=== PATIENT | male | born 1985 | race Caucasian/White ===

== ENCOUNTER 2016-11-23 14:01 | Observation (INO) ==
[2016-11-23] MEDS ORDERED: Famotidine 20 MG/2 ML VIAL IVP ONE (14:24)
[2016-11-23] MEDS ORDERED: *HR* Promethazine 25 MG/ML VIAL IVP ONE ×2 (14:24→18:09)
--- NOTE | 2016-11-23 14:27 | Emergency Department Note ---
Disposition Clinical Impression: Acute gastroenteritis Intractable vomiting Qualifiers: Vomiting type: unspecified Nausea presence: with nausea Qualified Code(s): R11.2 - Nausea with vomiting, unspecified Type 1 diabetes mellitus Qualifiers: Diabetes mellitus complication status: with hyperglycemia Qualified Code(s): E10.65 - Type 1 diabetes mellitus with hyperglycemia Disposition: Admitted As Inpatient Condition: Good Referrals: Jaime Mosqueda MD [Primary Care Provider] - Forms: ED Satisfaction Letter Time of Disposition: 17:57 Nausea/Vomiting/Diarrhea HPI - General Chief complaint: ED Nausea/Vomiting/Diarrhea Stated complaint: vomiting Time Seen by Provider: 11/23/16 14:25 Source: patient Mode of arrival: ambulatory Limitations: no limitations Nursing Notes Reviewed: Yes Vital Signs Reviewed: Yes - History of Present Illness HPI Narrative: 31-year-old white male who was just discharged after being seen for vomiting that started last night. He had had multiple episodes of vomiting. He had aching all over. He is an insulin-dependent diabetic. His blood sugars have not been running high. He was worked up. He had ketones in his urine and blood. His pH was normal after being adjusted for his PCO2. His bicarbonate was normal. He was feeling good and was eating and drinking and wanted to go home. After he got home he got nauseated. He took a Zofran. He vomited. He came back. Pt Subjective Complaint: nausea, vomiting Onset (ago): day(s) Description of emesis: food contents (1) Number of episodes of emesis: 1 If pain, Location of pain: diffuse Severity: moderate Quality: cramping Consistency: intermittent Worsens with: nonthing Context: other (Insulin-dependent diabetic) Associated symptoms: Reports: other (Myalgias) - Related Data Home Medications Medication Instructions Recorded Confirmed Insulin Human Regular [HumuLIN R] 60 units SQ DAILY 11/23/16 11/23/16 Previous Rx's Medication Instructions Recorded Ondansetron ODT [Zofran ODT] 4 mg SL Q4HR PRN #8 tab.rapdis 11/23/16 Allergies Allergy/AdvReac Type Severity Reaction Status Date / Time No Known Allergies Allergy Verified 11/23/16 14:02 All systems ED: reviewed and negative except as stated. Constitutional: Denies: fever, chills ENT ED: Denies: ear pain, throat pain Cardiovascular: Denies: chest pain Respiratory: Denies: cough, dyspnea Gastrointestinal: Reports: abdominal pain, nausea, vomiting. Denies: diarrhea Musculoskeletal: Reports: myalgia. Denies: back pain Integumentary: Denies: rash Past Medical History - Past Medical History Medical history: Reports: diabetes Surgical history: Reports: no surgical history Psychiatric history: Reports: no psych history - Social History Smoking Status: Current every day smoker Smokeless Tobacco Status: No Alcohol use: Reports: none Drug use: Reports: none Physical Exam - General Limitations: no limitations General appearance: alert, in no apparent distress - Head Head exam: atraumatic, normocephalic - Eye Eye exam: Present: PERRL, EOMI. Absent: scleral icterus, conjunctival injection - ENT ENT exam: normal oropharynx, mucous membranes moist - Neck Neck exam: Present: normal inspection, full ROM, trachea midline. Absent: lymphadenopathy - Chest Chest inspection: Present: normal inspection, symmetric chest wall rise - Respiratory Respiratory exam: Present: normal lung sounds bilaterally. Absent: respiratory distress, wheezes - Cardiovascular Cardiovascular exam: Present: regular rate, normal rhythm, normal heart sounds - Abdominal Exam Abdominal exam: Present: soft, tenderness, normal bowel sounds. Absent: distention, guarding, rebound, organomegaly, mass Abdominal tenderness: Present: diffuse, mild - Extremities Exam Extremities exam: Present: normal inspection, full ROM - Back Exam Back exam: Absent: CVA tenderness (R), CVA tenderness (L) - Neurological Exam Neurological exam: Present: alert, oriented X3, normal gait - Psychiatric Psychiatric exam: Present: normal affect, normal mood - Skin Skin exam: Present: warm, dry, intact. Absent: cyanosis, diaphoresis Course - Reevaluation(s) Reevaluation #1: He is improved, but he continues to dry heave when he wakes up. Time: 17:55 Vital Signs Temperature 96.1 F L 11/23/16 14:05 Pulse Rate 94 11/23/16 14:05 Respiratory Rate 16 11/23/16 14:05 Blood Pressure 153/84 11/23/16 14:05 O2 Sat by Pulse Oximetry 99 11/23/16 14:05 Temperature 96.1 F L 11/23/16 14:06 Pulse Rate 110 11/23/16 16:42 Respiratory Rate 15 11/23/16 17:16 Blood Pressure 110/59 11/23/16 17:16 O2 Sat by Pulse Oximetry 100 11/23/16 17:16 Oxygen Delivery Oxygen Delivery Room Air Nausea/Vomiting/Diarrhea - MDM Narrative Medical decision making narrative: Differential includes but is not limited to gastroenteritis, DKA, small bowel obstruction, gastritis, pancreatitis, peptic ulcer disease, hepatitis, biliary tract disease. Clinically I still believe this is a viral gastroenteritis with intractable vomiting. His bicarbonate is normal. His pH is normal. I cannot rule out the possibility of early DKA. He certainly does not need to be on an insulin drip. Sliding scale insulin is fine. IV hydration and nausea control. I spoke with Dr. Lassiter. He is agreeable with our treatment plan. He is accepted the patient for admission. - Medical Records Medical records reviewed: Yes I reviewed the patient's medical records. - Lab Data Lab results reviewed: Yes I reviewed the patient's lab results.
[2016-11-23] MEDS ORDERED: 0.9 % Sodium Chloride 1,000 ML IVC SCH ×2 (14:30→20:16)
[2016-11-23] MEDS ORDERED: *HR* Morphine 2 MG/ML SYRINGE IVP ONE (14:48)
[2016-11-23] MEDS ORDERED: Naloxone 0.4 MG/ML INJ IVP PRN (20:16)
[2016-11-23] MEDS ORDERED: *HR* Dextrose 50 % in Water (Syg) 50 ML SYRINGE IVP PRN ×2 (20:16→21:22)
[2016-11-23] MEDS ORDERED: D5% in Water 1,000 ML IV PRN ×2 (20:16→21:22)
[2016-11-23] MEDS ORDERED: *HR* Morphine 2 MG/ML SYRINGE IVP PRN (20:16)
[2016-11-23] MEDS ORDERED: Dextrose Gel 15 GM PO PRN ×4 (20:16→21:22)
[2016-11-23] MEDS: Ondansetron 4 MG/2 ML VIAL IVP PRN (21:56)
[2016-11-23] MEDS: Insulin LISPRO 300 UNITS/3 ML VIAL SQ SCH (21:56)
[2016-11-24] MEDS ORDERED: Insulin LISPRO 300 UNITS/3 ML VIAL SQ SCH
[2016-11-24] MEDS: Insulin LISPRO 300 UNITS/3 ML VIAL SQ SCH ×4 (02:06→13:45)
[2016-11-24] MEDS: 0.9 % Sodium Chloride 1,000 ML IVC SCH ×2 (02:09→09:54)
[2016-11-24 06:50] LABS: Basophils % 0.1 %; Hematocrit 37.2 % (37.5-50.1); Hemoglobin 12.8 g/dL (12.9-16.9); Immature Granulocytes % 0.7 % (0-4); Lymphocytes % 5.3 %; Mean Corpuscular HGB Conc 34.4 g/dL (31.6-35.5); Mean Corpuscular Hemoglobin 30.1 pg (28.0-33.3); Mean Corpuscular Volume 87.5 fL (83.0-100.0); Mean Platelet Volume 12.1 fL (9.4-12.4); Monocytes # 1.7 K/mcL (0.0-1.3); Monocytes % 9.3 %; Neutrophils # 15.4 K/mcL (1.6-8.9); Platelet Count 234 K/mcL (140-400); Red Blood Count 4.25 M/mcL (4.19-5.50); Red Cell Distribution Width 12.9 % (11.5-14.5); Segmented Neutrophils % 84.6 %
[2016-11-24 07:02] LABS: Alanine Aminotransferase 16 Units/L (0-55); Albumin 3.5 g/dL (3.5-5.0); Albumin/Globulin Ratio 1.6 (1.1-2.2); Alkaline Phosphatase 45 Units/L (38-126); Aspartate Amino Transferase 21 Units/L (5-34); BUN/Creatinine Ratio 19 (6-26); Bilirubin,Total 0.5 mg/dL (0.2-1.2); Blood Urea Nitrogen 31 mg/dL (8-26); Calcium 9.1 mg/dL (8.6-10.8); Carbon Dioxide 21 mEq/L (19-29); Chloride 104 mEq/L (98-109); Globulin 2.2 g/dL (2.4-3.5); Glucose 343 mg/dL (70-99); Osmolality,Calculated 304 (280-300); Sodium 137 mEq/L (136-145); Total Protein 5.7 g/dL (6.0-8.3); eGFR For African Americans > 60 (> 60); eGFR For Non-African Americans 51 (> 60)
[2016-11-24] MEDS: Ondansetron 4 MG/2 ML VIAL IVP PRN ×3 (09:47→20:00)
[2016-11-24] MEDS: Acetaminophen 325 MG TABLET PO PRN ×2 (10:04→16:00)
--- NOTE | 2016-11-24 11:21 | Internal Med History&Physical ---
Date of Encounter: 11/24/16 Time of Encounter: 10:45 Assessment and Plan (1) Acute gastroenteritis Current visit: Yes Status: Acute He has been started on IV fluids and when necessary anti-emetics. (2) Azotemia Current visit: Yes Status: Acute We will recheck labs in a.m. (3) Hyperkalemia Current visit: Yes Status: Acute Recheck labs in a.m. (4) Type 1 diabetes mellitus Current visit: Yes Status: Chronic Continue Accu-Cheks with SSI. Qualifiers: Diabetes mellitus complication status: with hyperglycemia Qualified Code(s) : E10.65 - Type 1 diabetes mellitus with hyperglycemia Internal Medicine - H&P: HPI Chief complaint: Vomiting Admitted From: Home Plans for Post Hospital Care: Home History of present illness: Mr. Summers is a 31 year old male who came to emergency room the morning of November 23 stating he had abdominal discomfort and vomiting for several hours. He reports he vomited several times but no hematemesis was noted. He was evaluated and treated in emergency room and improved. He wished to be discharged home. He returned to emergency room after few hours stating he had additional vomiting and myalgias. He was admitted to [facility] floor for ongoing care needs. He states he has not vomited in several hours. His abdominal pain is now resolved. He denies diarrhea. Reports having a cough with occasional green sputum in the past few days. Chest x-ray done at his initial emergency room visit on November 23 showed no acute infiltrate. Past Med Surg Social Fam HX - Past Medical History Medical history: diabetes, hyperlipidemia, hypertension, thyroid disease Psychiatric history: no psych history - Past Surgical History Surgical History: herniorrhaphy - Social History Smoking Status: Current every day smoker Packs per day: 1 PACK Smokeless Tobacco Status: No Alcohol use: none Drug use: none - Family History Paternal Grandmother Living Status: Age at : 51 Cause of : COMPLICATIONS FROM SURGERY Hx Family Endocrine Disorder: Yes (DIABETIC TYPE 2) Internal Medicine - H&P: Meds Insulin Human Regular [HumuLIN R] 60 units SQ DAILY 11/23/16 [History] Ondansetron ODT [Zofran ODT] 4 mg SL Q4HR PRN #8 tab.rapdis 11/23/16 [Rx] Allergies No Known Allergies Allergy (Verified 11/23/16 14:02) All Systems PM: A 10-system review of systems was performed and is negative for pertinent findings except as documented above in the HPI. Review of systems: Gen.: His weight has decreased from 205 pounds at the February [address] [facility] hospitalization to 185 pounds at present Cardiovascular: He denies VT hypertension heart failure angina DVT or pulmonary embolus Respiratory: He has smoked since age 18 up to 1 pack per day. He denies chronic lung disease. GI: Denies disorders of his liver gallbladder or exocrine pancreas : No history of hematuria dysuria or kidney stones Neurologic: No history of strokes. He had a hypoglycemic seizure prior to placement of the insulin pump in 2010. He has had no further seizures or other neurologic problems Endocrine: He was diagnosed with DM 1 approximately age 10. He had an insulin pump placed 2010 and fills the reservoir every 3-4 days. He has history of hyperlipidemia but denies thyroid disease Hematology/oncology: Denies blood disorders cancers or anemia Psychiatric: Denies anxiety depression or other mental health issues Musk skeletal: He has occasional aches in his wrist and knees with significant weather change. - Constitutional Vitals: Temp Pulse Resp BP Pulse Ox 98.9 F 92 20 120/50 97 11/24/16 09:46 11/24/16 09:46 11/24/16 09:46 11/24/16 09:46 11/24/16 09:46 Exam: Gen.: He is well-developed well-nourished male who appears in no severe distress at present time HEENT: Head is atraumatic and normocephalic. Eyes: EOMI. There is no scleral icterus. Mouth: Mucosa is moist. Neck: Supple and nontender. There is no thyromegaly or adenopathy noted Heart: Regular without murmurs gallops or ectopics Lungs: No wheezes or crackles are heard Abdomen: Soft and nontender. No masses or guarding are noted. Extremities: There is no cyanosis edema or clubbing noted. Dorsalis pedis and posttibial pulses are 1-2 over 2 bilaterally. Neurologic: Mental status: He is talkative and a good historian. Cranial nerves : Smile is symmetric. Forehead wrinkles bilaterally. Tongue protrudes midline. EOMI. Motor: There is no pronator drift. Cerebellar: Finger to nose is intact bilaterally. Skin: Warm and dry Internal Med - H&P Results - Labs CBC & Chem 7: 11/24/16 06:10 11/24/16 06:10 Labs: Short CBC 11/24/16 Range/Units 06:10 WBC 18.2 H (4.3-11.1) K/mcL Hgb 12.8 L D (12.9-16.9) g/dL Hct 37.2 L (37.5-50.1) % Plt Count 234 (140-400) K/mcL Neutrophils # 15.4 H (1.6-8.9) K/mcL BMP 11/24/16 06:10 Sodium 137 Potassium 5.0 H Chloride 104 Carbon Dioxide 21 BUN 31 H D Creatinine 1.60 H Glucose 343 H Calcium 9.1 Liver Function 11/24/16 Range/Units 06:10 Total Bilirubin 0.5 (0.2-1.2) mg/dL AST 21 (5-34) Units/L ALT 16 (0-55) Units/L Alkaline Phosphatase 45 (38-126) Units/L Albumin 3.5 D (3.5-5.0) g/dL
[2016-11-24 17:18] LABS: Hemoglobin A1C 7.4 %
[2016-11-24] MEDS ORDERED: Nicotine 21 MG PATCH.TD24 TD SCH (19:30)
[2016-11-24] MEDS: *HR* HYDROcodone/Acet 5/325 mg TABLET PO PRN (20:01)
[2016-11-25] MEDS: *HR* HYDROcodone/Acet 5/325 mg TABLET PO PRN (00:01)
[2016-11-25] MEDS: Ondansetron 4 MG/2 ML VIAL IVP PRN ×3 (05:10→08:57)
[2016-11-25 05:16] LABS: Basophils % 0.3 %; Eosinophils # 0.1 K/mcL (0.0-0.6); Eosinophils % 0.9 %; Hematocrit 34.3 % (37.5-50.1); Hemoglobin 11.7 g/dL (12.9-16.9); Immature Granulocytes % 0.4 % (0-4); Lymphocytes # 1.6 K/mcL (0.6-4.6); Lymphocytes % 14.3 %; Mean Corpuscular HGB Conc 34.1 g/dL (31.6-35.5); Mean Corpuscular Hemoglobin 29.8 pg (28.0-33.3); Mean Corpuscular Volume 87.5 fL (83.0-100.0); Monocytes # 0.9 K/mcL (0.0-1.3); Monocytes % 8.3 %; Neutrophils # 8.4 K/mcL (1.6-8.9); Platelet Count 170 K/mcL (140-400); Red Blood Count 3.92 M/mcL (4.19-5.50); Segmented Neutrophils % 75.8 %
[2016-11-25 05:36] LABS: BUN/Creatinine Ratio 21 (6-26); Blood Urea Nitrogen 24 mg/dL (8-26); Calcium 8.6 mg/dL (8.6-10.8); Carbon Dioxide 23 mEq/L (19-29); Chloride 103 mEq/L (98-109); Glucose 160 mg/dL (70-99); Magnesium 1.9 mg/dL (1.6-2.6); Osmolality,Calculated 289 (280-300); Potassium 4.4 mEq/L (3.5-4.5); Sodium 136 mEq/L (136-145); eGFR For African Americans > 60 (> 60); eGFR For Non-African Americans > 60 (> 60)
[2016-11-25 07:23] VITALS: BP 113/63
--- NOTE | 2016-11-25 11:08 | Discharge Summary ---
Date of Encounter: 11/25/16 Time of Encounter: 10:55 - Discharge Diagnosis (1) Acute gastroenteritis Priority: Primary Status: Acute (2) Azotemia Priority: Secondary Status: Resolved (3) Hyperkalemia Priority: Secondary Status: Resolved (4) Type 1 diabetes mellitus Priority: Secondary Status: Chronic Qualifiers: Diabetes mellitus complication status: with hyperglycemia Qualified Code(s) : E10.65 - Type 1 diabetes mellitus with hyperglycemia - Discharge Medications Home Medications: Insulin Human Regular [HumuLIN R] 60 units SQ DAILY 11/23/16 [History] Ondansetron ODT [Zofran ODT] 4 mg SL Q4HR PRN #8 tab.rapdis 11/23/16 [Rx] Allergies/Adverse Reactions: Allergies No Known Allergies Allergy (Verified 11/23/16 14:02) Date of admission: 11/23/16 18:31 Primary care physician: Jaime Mosqueda MD - Patient Status Disposition: Home, Self-Care Condition: Good Overall status at discharge: patient is progressing back to baseline - Discharge Instructions Follow Up With: Jaime Mosqueda MD [Primary Care Provider] - 1 week - Diet and Activity Activity: resume usual activities as tolerated Diet: diabetic diet Hospital course: Mr. Summers is a 31 year old male who came to emergency room the morning of November 23 stating he had abdominal discomfort and vomiting for several hours. He reports he vomited several times but no hematemesis was noted. He was evaluated and treated in emergency room and improved. He wished to be discharged home. He returned to emergency room after few hours stating he had additional vomiting and myalgias. He was admitted to [facility] floor for ongoing care needs. Initial orders were written by the emergency room physician. I saw him on November 24 and performed the history and physical. He was started on IV fluids and when necessary antiemetics. He placed himself back on his insulin pump and Accu-Cheks were done with SSI and showed satisfactory control by the time of discharge. Follow-up labs showed resolution of the azotemia and hyperkalemia. When I saw him on November 25 he felt stable for discharge home which I felt was reasonable. He will follow with his PCP Dr. Mosqueda within 1 week. - Time Spent with Patient Total time spent providing and/or coordinating discharge services: - Constitutional Vitals: Temp Pulse Resp BP Pulse Ox 98.2 F 64 16 113/63 100 11/25/16 07:15 11/25/16 07:15 11/25/16 07:15 11/25/16 07:15 11/25/16 07:15
== END 2016-11-25 11:35 | disposition home or self-care (01) ==
LOC: INPPIK 14:01 → EMEROOPIK 14:01 → INPPIK 19:52
PROVIDERS: ADMIT Internal Medicine; ATTEND Internal Medicine

== ENCOUNTER 2017-09-09 11:36 | Observation (INO) ==
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
[2017-09-09] MEDS ORDERED: Ondansetron 4 MG/2 ML VIAL IVP ONE (12:15)
[2017-09-09] MEDS ORDERED: 0.9 % Sodium Chloride 1,000 ML IVC ONE ×2 (12:15→13:21)
[2017-09-09 12:31] LABS: Bilirubin,Urine Negative (Negative); Blood,Urine Moderate (Negative); Clarity,Urine Clear (Clear); Color,Urine Yellow (Yellow); Glucose,Urine (UA) 500 mg/dL (Normal); Ketones,Urine >=160 mg/dL (Negative); Leukocyte Esterase,Urine Negative (Negative); Nitrite,Urine Negative (Negative); Protein,Urine Trace mg/dL (Neg-Trace); Specific Gravity,Urine >= 1.030 (1.010-1.025); Urobilinogen,Urine Normal (Normal)
[2017-09-09 12:40] LABS: Basophils % 0.4 %; Hematocrit 47.2 % (37.5-50.1); Hemoglobin 16.3 g/dL (12.9-16.9); Immature Granulocytes % 0.4 % (0-4); Lymphocytes # 0.5 K/mcL (0.6-4.6); Lymphocytes % 9.2 %; Mean Corpuscular HGB Conc 34.5 g/dL (31.6-35.5); Mean Corpuscular Volume 86.8 fL (83.0-100.0); Mean Platelet Volume 11.8 fL (9.4-12.4); Monocytes # 0.2 K/mcL (0.0-1.3); Monocytes % 3.6 %; Neutrophils # 4.9 K/mcL (1.6-8.9); Platelet Count 203 K/mcL (140-400); Red Blood Count 5.44 M/mcL (4.19-5.50); Red Cell Distribution Width 12.2 % (11.5-14.5); Segmented Neutrophils % 86.4 %
[2017-09-09 12:50] LABS: Beta-Hydroxybutyric Acid > 2.00 mmol/L (0.02-0.27)
[2017-09-09 12:55] LABS: VBG HCO3 20 mEq/L (21-27); VBG PCO2 42 mmHg (41-51); VBG PH 7.29 pH Units (7.32-7.42); VBG PO2 35 mmHg (25-50)
[2017-09-09 12:59] LABS: Bacteria,Urine Few per hpf (None-Few); Squamous Epithelial Cell,Urine Few per lpf (None-Few); WBC,Urine 0-3 per hpf (0-3)
[2017-09-09 13:00] LABS: Alanine Aminotransferase 26 Units/L (0-55); Albumin 4.2 g/dL (3.5-5.0); Albumin/Globulin Ratio 1.2 (1.1-2.2); Alkaline Phosphatase 104 Units/L (38-126); Aspartate Amino Transferase 18 Units/L (5-34); BUN/Creatinine Ratio 13 (6-26); Bilirubin,Total 0.8 mg/dL (0.2-1.2); Blood Urea Nitrogen 21 mg/dL (8-26); Calcium 10.7 mg/dL (8.6-10.8); Carbon Dioxide 16 mEq/L (19-29); Chloride 96 mEq/L (98-109); Globulin 3.5 g/dL (2.4-3.5); Glucose 387 mg/dL (70-99); Lipase 113 Units/L (8-78); Osmolality,Calculated 295 (280-300); Potassium 5.2 mEq/L (3.5-4.5); Sodium 133 mEq/L (136-145); Total Protein 7.7 g/dL (6.0-8.3); eGFR For African Americans > 60 (> 60); eGFR For Non-African Americans 52 (> 60)
[2017-09-09] MEDS ORDERED: Insulin Regular, Human 100 UNIT/ML SQ ONE (13:24)
[2017-09-09] MEDS ORDERED: Acetaminophen 325 MG TABLET PO ONE (13:39)
[2017-09-09] MEDS ORDERED: Acetaminophen 325 MG TABLET PO PRN (15:03)
[2017-09-09] MEDS ORDERED: Naloxone 0.4 MG/ML INJ IVP PRN (15:03)
[2017-09-09] MEDS ORDERED: Dextrose Gel 15 GM PO PRN ×2 (15:04)
[2017-09-09] MEDS ORDERED: D5% in Water 1,000 ML IVC PRN (15:04)
[2017-09-09] MEDS ORDERED: *HR* Dextrose 50 % in Water (Syg) 50 ML SYRINGE IVP PRN (15:04)
[2017-09-09] MEDS: 0.9 % Sodium Chloride 1,000 ML IVC SCH ×2 (15:50→23:23)
[2017-09-09] MEDS: Insulin LISPRO 300 UNITS/3 ML VIAL SQ SCH ×2 (18:09→20:48)
[2017-09-09] MEDS: Divalproex (24 HR) 500 MG TABLET PO SCH (20:47)
[2017-09-10] MEDS: Insulin LISPRO 300 UNITS/3 ML VIAL SQ SCH ×6 (00:04→21:00)
[2017-09-10] MEDS: Ondansetron 4 MG/2 ML VIAL IVP PRN ×2 (06:15→16:37)
[2017-09-10] MEDS: Divalproex (24 HR) 500 MG TABLET PO SCH ×2 (09:54→21:00)
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
[2017-09-11] MEDS: Ondansetron 4 MG/2 ML VIAL IVP PRN (00:31)
[2017-09-11] MEDS: Insulin LISPRO 300 UNITS/3 ML VIAL SQ SCH ×4 (00:33→11:49)
[2017-09-11 06:11] LABS: Basophils % 0.4 %; Eosinophils # 0.1 K/mcL (0.0-0.6); Eosinophils % 1.3 %; Hematocrit 36.5 % (37.5-50.1); Immature Granulocytes % 0.4 % (0-4); Lymphocytes # 1.4 K/mcL (0.6-4.6); Lymphocytes % 26.9 %; Mean Corpuscular HGB Conc 35.6 g/dL (31.6-35.5); Mean Corpuscular Volume 84.3 fL (83.0-100.0); Mean Platelet Volume 11.9 fL (9.4-12.4); Monocytes # 0.8 K/mcL (0.0-1.3); Monocytes % 14.3 %; Platelet Count 151 K/mcL (140-400); Red Blood Count 4.33 M/mcL (4.19-5.50); Red Cell Distribution Width 11.9 % (11.5-14.5); Segmented Neutrophils % 56.7 %
[2017-09-11 06:27] VITALS: BP 103/66
[2017-09-11 06:27] LABS: BUN/Creatinine Ratio 11 (6-26); Blood Urea Nitrogen 11 mg/dL (8-26); Calcium 9.2 mg/dL (8.6-10.8); Carbon Dioxide 26 mEq/L (19-29); Chloride 100 mEq/L (98-109); Glucose 192 mg/dL (70-99); Magnesium 1.7 mg/dL (1.6-2.6); Osmolality,Calculated 287 (280-300); Potassium 3.9 mEq/L (3.5-4.5); Sodium 136 mEq/L (136-145); eGFR For African Americans > 60 (> 60); eGFR For Non-African Americans > 60 (> 60)
[2017-09-11] MEDS: Divalproex (24 HR) 500 MG TABLET PO SCH (08:23)
--- NOTE | 2017-09-11 10:29 | Discharge Summary ---
Date of Encounter: 09/11/17 Time of Encounter: 10:20 - Discharge Diagnosis (1) Acute gastroenteritis Priority: Primary Status: Resolved (2) DKA (diabetic ketoacidosis) Priority: Secondary Status: Resolved Qualifiers: Diabetes mellitus type: type 1 Diabetes mellitus complication detail: without coma Qualified Code(s): E10.10 - Type 1 diabetes mellitus with ketoacidosis without coma (3) Azotemia Priority: Secondary Status: Resolved (4) Hyperkalemia Priority: Secondary Status: Resolved - Discharge Medications Home Medications: Insulin Human Regular [HumuLIN R] 24 units SQ DAILY 11/23/16 [History] Ondansetron ODT [Zofran ODT] 4 mg SL Q4HR PRN #8 tab.rapdis 11/23/16 [Rx] Acetaminophen [Tylenol] 1,000 mg PO Q6HR 06/02/17 [History] Divalproex (24 HR) [Depakote ER (24 HR)] 1,000 mg PO BID 09/09/17 [History] Allergies/Adverse Reactions: 3 Allergy/AdvReac Type Severity Reaction Status Date / Time No Known Allergies Allergy Verified 11/23/16 14:02 Date of admission: 09/09/17 15:53 Primary care physician: Jaime Mosqueda MD - Patient Status Disposition: Home, Self-Care Condition: Good Functional capacity at discharge: independent ambulation Overall status at discharge: patient is progressing back to baseline - Discharge Instructions - Diet and Activity Activity: resume usual activities as tolerated Diet: advance to your usual diet Hospital course: Mr. Summers is a 32 year old male who came to emergency room stating he had diarrhea and decreased appetite onset 3 days earlier. He began vomiting the day of admission with multiple episodes of emesis. There was no hematemesis noted. He had no blood in the diarrhea. He became progressively weaker so came to emergency room. He was evaluated and found to have acute renal insufficiency and possible early DKA. He was admitted to [facility] for ongoing care needs. Initial orders were written by the emergency room physician. I saw him on September 10 and performed a history and physical. He was given IV fluids and antiemetics. He had no further vomiting after I saw him. He had adequate intake of food and fluid by time of discharge. Blood sugars remained in a satisfactory range. Follow-up labs on Marti 4 showed normalization of the WBC differential and resolution of the azotemia, acidosis, and hyperkalemia. When I saw him September 11 he felt stable for discharge home. He will follow with his PCP within one week. - Time Spent with Patient Total time spent providing and/or coordinating discharge services: - Constitutional Vitals: Temp Pulse Resp BP Pulse Ox 97.6 F 71 16 103/66 98 09/11/17 06:24 09/11/17 06:24 09/11/17 06:24 09/11/17 06:24 09/11/17 06:24 - VTE Reasons for not Prescribing Prophylaxis: Treatment not Indicated - Low risk for VTE
== END 2017-09-11 13:22 | disposition home or self-care (01) ==
LOC: INPPIK 11:36 → EMEROOPIK 11:36 → INPPIK 16:52
PROVIDERS: ADMIT Internal Medicine; ATTEND Internal Medicine

== ENCOUNTER 2020-12-23 20:40 | Observation (INO) ==
[2020-12-23] MEDS ORDERED: Ondansetron 4 MG/2 ML VIAL IVP ONE (21:02)
[2020-12-23] MEDS ORDERED: Insulin Human Regular 10 UNIT in 0.9 % Sodium Chloride 10 ML IV ONE ×2 (21:02→22:04)
[2020-12-23] MEDS ORDERED: 0.9 % Sodium Chloride 1,000 ML IV ONE (21:02)
[2020-12-23 21:12] LABS: Basophils # 0.1 K/mcL (0.0-0.2); Basophils % 0.5 %; Eosinophils # 0.1 K/mcL (0.0-0.6); Eosinophils % 0.7 %; Hematocrit 47.4 % (37.5-50.1); Hemoglobin 16.2 g/dL (12.9-16.9); Immature Granulocytes % 0.4 % (0-4); Lymphocytes # 1.6 K/mcL (0.6-4.6); Lymphocytes % 12.8 %; Mean Corpuscular HGB Conc 34.2 g/dL (31.6-35.5); Mean Corpuscular Hemoglobin 30.7 pg (28.0-33.3); Mean Corpuscular Volume 89.8 fL (83.0-100.0); Mean Platelet Volume 11.5 fL (9.4-12.4); Monocytes # 1.5 K/mcL (0.0-1.3); Monocytes % 11.9 %; Neutrophils # 9.3 K/mcL (1.6-8.9); Platelet Count 194 K/mcL (140-400); Red Blood Count 5.28 M/mcL (4.19-5.50); Red Cell Distribution Width 11.6 % (11.5-14.5); Segmented Neutrophils % 73.7 %; White Blood Count 12.6 K/mcL (4.3-11.1)
[2020-12-23 21:33] LABS: Troponin I < 0.03 ng/mL (< 0.04)
[2020-12-23 21:34] LABS: Lipase 41 Units/L (11-82); Magnesium 1.9 mg/dL (1.6-2.6); Phosphorous 5.6 mg/dL (2.7-4.5)
[2020-12-23 21:37] LABS: VBG HCO3 22 mEq/L (21-27); VBG PCO2 42 mmHg (41-51); VBG PH 7.33 pH Units (7.32-7.42); VBG PO2 51 mmHg (25-50)
[2020-12-23 21:45] LABS: Bilirubin,Urine Negative (Negative); Blood,Urine Small (Negative); Clarity,Urine Clear (Clear); Color,Urine Yellow (Yellow); Glucose,Urine (UA) >=1000 mg/dL (Normal); Ketones,Urine >=160 mg/dL (Negative); Leukocyte Esterase,Urine Negative (Negative); Nitrite,Urine Negative (Negative); Protein,Urine Negative (Neg-Trace); Urobilinogen,Urine Normal (Normal)
[2020-12-23 21:51] LABS: Alanine Aminotransferase 12 Units/L (7-52); Albumin 4.4 g/dL (3.5-5.7); Albumin/Globulin Ratio 1.6 (1.1-2.2); Alkaline Phosphatase 68 Units/L (34-104); Amylase 37 Units/L (29-103); Aspartate Amino Transferase 12 Units/L (13-39); BUN/Creatinine Ratio 23 (6-26); Bilirubin,Total 0.5 mg/dL (0.3-1.0); Blood Urea Nitrogen 34 mg/dL (6-20); Calcium 9.9 mg/dL (8.6-10.3); Carbon Dioxide 21 mEq/L (23-29); Chloride 87 mEq/L (98-107); Globulin 2.7 g/dL (2.4-3.5); Glucose 601 mg/dL (70-105); Osmolality,Calculated 302 (280-300); Potassium 4.8 mEq/L (3.5-5.1); Sodium 128 mEq/L (136-145); Total Protein 7.1 g/dL (6.4-8.9); eGFR For African Americans > 60 (> 60); eGFR For Non-African Americans 55 (> 60)
[2020-12-23 21:58] LABS: Bacteria,Urine Few per hpf (None-Few)
[2020-12-23] MEDS ORDERED: Insulin DETEMIR 100 UNIT/ML per UNIT SUBQ ONE (22:45)
[2020-12-23] MEDS ORDERED: D5% in Water 1,000 ML IVC PRN (22:52)
[2020-12-23] MEDS ORDERED: Dextrose Gel 15 GM/37.5 ML TUBE PO PRN ×2 (22:52)
[2020-12-23] MEDS ORDERED: *HR* Dextrose 50 % in Water (Vial) 50 ML VIAL IVP PRN (22:52)
[2020-12-24] MEDS ORDERED: 0.9 % Sodium Chloride 1,000 ML IVC SCH ×3 (00:25→01:15)
[2020-12-24] MEDS ORDERED: Insulin Human Regular 10 UNIT in 0.9 % Sodium Chloride 10 ML IV ONE ×2 (00:30→03:57)
[2020-12-24] MEDS ORDERED: Naloxone 0.4 MG/ML INJ IVP PRN (01:15)
[2020-12-24] MEDS ORDERED: Insulin Regular, Human 100 UNIT/ML IV PRN (01:15)
[2020-12-24] MEDS ORDERED: Dextrose Gel 15 GM/37.5 ML TUBE PO PRN ×2 (01:15)
[2020-12-24] MEDS ORDERED: *HR* Dextrose 50 % in Water (Vial) 50 ML VIAL IVP PRN (01:15)
[2020-12-24] MEDS ORDERED: D5% in Water 1,000 ML IVC PRN (01:15)
[2020-12-24 07:09] LABS: Basophils % 0.5 %; Eosinophils # 0.3 K/mcL (0.0-0.6); Eosinophils % 3.6 %; Hematocrit 39.6 % (37.5-50.1); Hemoglobin 13.8 g/dL (12.9-16.9); Immature Granulocytes % 0.3 % (0-4); Lymphocytes % 22.7 %; Mean Corpuscular HGB Conc 34.8 g/dL (31.6-35.5); Mean Corpuscular Hemoglobin 30.9 pg (28.0-33.3); Mean Corpuscular Volume 88.8 fL (83.0-100.0); Mean Platelet Volume 11.2 fL (9.4-12.4); Monocytes # 1.1 K/mcL (0.0-1.3); Monocytes % 12.6 %; Neutrophils # 5.3 K/mcL (1.6-8.9); Platelet Count 176 K/mcL (140-400); Red Blood Count 4.46 M/mcL (4.19-5.50); Red Cell Distribution Width 11.8 % (11.5-14.5); Segmented Neutrophils % 60.3 %; White Blood Count 8.7 K/mcL (4.3-11.1)
[2020-12-24] MEDS ORDERED: Insulin LISPRO 300 UNITS/3 ML VIAL SUBQ SCH ×3 (07:30→11:30)
[2020-12-24 08:11] LABS: BUN/Creatinine Ratio 23 (6-26); Blood Urea Nitrogen 29 mg/dL (6-20); Carbon Dioxide 30 mEq/L (23-29); Chloride 98 mEq/L (98-107); Glucose 296 mg/dL (70-105); Osmolality,Calculated 293 (280-300); Potassium 4.2 mEq/L (3.5-5.1); Sodium 133 mEq/L (136-145); eGFR For African Americans > 60 (> 60); eGFR For Non-African Americans > 60 (> 60)
[2020-12-24] MEDS ORDERED: Divalproex (12 HR) 250 MG TABLET PO SCH (09:00)
[2020-12-24 10:23] LABS: Estimated Average Glucose 249 mg/dl; Hemoglobin A1C 10.3 %
[2020-12-24 12:39] VITALS: BP 115/77
[2020-12-24] MEDS ORDERED: Insulin DETEMIR 100 UNIT/ML X5UNITS SUBQ SCH (21:00)
== END 2020-12-24 13:02 | disposition home or self-care (01) ==
LOC: EMEROOPIK 20:40 → INPPIK 20:40
PROVIDERS: ADMIT Family Medicine; ATTEND Family Medicine

== ENCOUNTER 2022-04-13 16:27 | Observation (INO) ==
[2022-04-13] MEDS ORDERED: 0.9 % Sodium Chloride 1,000 ML IV ONE ×2 (16:55→22:55)
[2022-04-13] MEDS ORDERED: Ondansetron 4 MG/2 ML VIAL IVP ONE (16:55)
[2022-04-13 17:22] LABS: Basophils % 0.3 %; Eosinophils # 0.2 K/mcL (0.0-0.6); Eosinophils % 1.9 %; Hematocrit 41.6 % (37.5-50.1); Immature Granulocytes % 0.2 % (0-4); Lymphocytes # 0.9 K/mcL (0.6-4.6); Lymphocytes % 9.5 %; Mean Corpuscular HGB Conc 33.7 g/dL (31.6-35.5); Mean Corpuscular Volume 86.1 fL (83.0-100.0); Monocytes # 0.6 K/mcL (0.0-1.3); Monocytes % 6.4 %; Platelet Count 241 K/mcL (140-400); Red Blood Count 4.83 M/mcL (4.19-5.50); Red Cell Distribution Width 12.2 % (11.5-14.5); Segmented Neutrophils % 81.7 %; White Blood Count 9.8 K/mcL (4.3-11.1)
[2022-04-13 17:32] LABS: VBG HCO3 28 mEq/L (21-27); VBG PCO2 46 mmHg (41-51); VBG PH 7.39 pH Units (7.32-7.42); VBG PO2 51 mmHg (25-50)
[2022-04-13 17:42] LABS: Alanine Aminotransferase 13 Units/L (7-52); Albumin/Globulin Ratio 1.9 (1.1-2.2); Alkaline Phosphatase 46 Units/L (34-104); Aspartate Amino Transferase 13 Units/L (13-39); BUN/Creatinine Ratio 19 (6-26); Blood Urea Nitrogen 20 mg/dL (6-20); Calcium 9.1 mg/dL (8.6-10.3); Carbon Dioxide 26 mEq/L (23-29); Chloride 99 mEq/L (98-107); Globulin 2.1 g/dL (2.4-3.5); Glucose 193 mg/dL (70-105); Osmolality,Calculated 290 (280-300); Potassium 4.3 mEq/L (3.5-5.1); Sodium 136 mEq/L (136-145); Total Protein 6.1 g/dL (6.4-8.9); eGFR For African Americans > 60 (> 60); eGFR For Non-African Americans > 60 (> 60)
[2022-04-13] MEDS ORDERED: Naloxone 0.4 MG/ML INJ IVP PRN (19:27)
[2022-04-13] MEDS ORDERED: 0.9 % Sodium Chloride 1,000 ML IVC SCH (19:30)
[2022-04-13] MEDS ORDERED: D5% in Water 1,000 ML IVC PRN (20:11)
[2022-04-13] MEDS ORDERED: Dextrose Gel 15 GM/37.5 ML TUBE PO PRN ×2 (20:11)
[2022-04-13] MEDS ORDERED: *HR* Dextrose 50 % in Water (Syg) 50 ML SYRINGE IVP PRN ×2 (20:11→23:50)
[2022-04-13] MEDS: Divalproex (24 HR) 500 MG TABLET PO SCH (20:40)
[2022-04-13] MEDS ORDERED: Pantoprazole 40 MG VIAL IVP ONE (21:23)
[2022-04-13] MEDS: *HR* Promethazine 25 MG/ML VIAL IM PRN (21:31)
[2022-04-13] MEDS ORDERED: Ketorolac 30 MG/ML VIAL IVP ONE (21:37)
[2022-04-13] MEDS ORDERED: Metoclopramide 10 MG/2 ML VIAL IVP ONE (21:41)
[2022-04-13 22:07] LABS: BUN/Creatinine Ratio 18 (6-26); Blood Urea Nitrogen 21 mg/dL (6-20); Calcium 9.2 mg/dL (8.6-10.3); Carbon Dioxide 18 mEq/L (23-29); Chloride 98 mEq/L (98-107); Glucose 239 mg/dL (70-105); Osmolality,Calculated 293 (280-300); Sodium 136 mEq/L (136-145); eGFR For African Americans > 60 (> 60); eGFR For Non-African Americans > 60 (> 60)
[2022-04-13 22:08] LABS: Amylase 36 Units/L (29-103); Lipase 14 Units/L (11-82)
[2022-04-13] MEDS ORDERED: Insulin Human Regular 10 UNIT in 0.9 % Sodium Chloride 10 ML IV ONE (22:12)
[2022-04-13] MEDS ORDERED: Insulin LISPRO 300 UNITS/3 ML VIAL SUBQ SCH (22:30)
[2022-04-13] MEDS ORDERED: D5% in 0.45% NACL 1,000 ML IVC PRN (23:50)
[2022-04-13] MEDS ORDERED: Insulin Regular, Human 100 UNIT/ML IV PRN (23:50)
[2022-04-13] MEDS ORDERED: D5% in 0.45% NACL w KCl 20 MEQ/1,000 ML MLS IVC PRN (23:50)
[2022-04-14] MEDS: 0.9 % Sodium Chloride w KCl 20 MEQ/1,000 ML MLS IVC SCH ×4 (00:31→09:38)
[2022-04-14] MEDS: Ondansetron 4 MG/2 ML VIAL IVP SCH ×2 (01:20→09:38)
[2022-04-14 02:18] LABS: VBG HCO3 25 mEq/L (21-27); VBG PCO2 39 mmHg (41-51); VBG PH 7.41 pH Units (7.32-7.42); VBG PO2 70 mmHg (25-50)
[2022-04-14 02:46] LABS: BUN/Creatinine Ratio 20 (6-26); Blood Urea Nitrogen 21 mg/dL (6-20); Carbon Dioxide 25 mEq/L (23-29); Chloride 107 mEq/L (98-107); Glucose 178 mg/dL (70-105); Osmolality,Calculated 293 (280-300); Potassium 3.8 mEq/L (3.5-5.1); Sodium 138 mEq/L (136-145); eGFR For African Americans > 60 (> 60); eGFR For Non-African Americans > 60 (> 60)
[2022-04-14] MEDS ORDERED: Insulin DETEMIR 100 UNIT/ML per UNIT SUBQ ONE (03:15)
[2022-04-14] MEDS ORDERED: Ondansetron 4 MG/2 ML VIAL IVP PRN (05:34)
[2022-04-14 06:00] LABS: Basophils % 0.2 %; Eosinophils % 0.1 %; Hematocrit 35.4 % (37.5-50.1); Immature Granulocytes % 0.3 % (0-4); Lymphocytes # 0.9 K/mcL (0.6-4.6); Lymphocytes % 5.7 %; Mean Corpuscular HGB Conc 33.9 g/dL (31.6-35.5); Mean Corpuscular Hemoglobin 29.1 pg (28.0-33.3); Mean Corpuscular Volume 85.9 fL (83.0-100.0); Mean Platelet Volume 10.8 fL (9.4-12.4); Monocytes % 6.4 %; Neutrophils # 13.7 K/mcL (1.6-8.9); Platelet Count 191 K/mcL (140-400); Red Blood Count 4.12 M/mcL (4.19-5.50); Red Cell Distribution Width 12.3 % (11.5-14.5); Segmented Neutrophils % 87.3 %; White Blood Count 15.7 K/mcL (4.3-11.1)
[2022-04-14 06:06] LABS: VBG HCO3 24 mEq/L (21-27); VBG PCO2 39 mmHg (41-51); VBG PO2 102 mmHg (25-50)
[2022-04-14 06:54] LABS: BUN/Creatinine Ratio 17 (6-26); Blood Urea Nitrogen 18 mg/dL (6-20); Calcium 7.9 mg/dL (8.6-10.3); Carbon Dioxide 27 mEq/L (23-29); Chloride 109 mEq/L (98-107); Glucose 128 mg/dL (70-105); Osmolality,Calculated 294 (280-300); Sodium 140 mEq/L (136-145); eGFR For African Americans > 60 (> 60); eGFR For Non-African Americans > 60 (> 60)
[2022-04-14] MEDS: Insulin LISPRO 300 UNITS/3 ML VIAL SUBQ SCH ×6 (07:30→20:01)
[2022-04-14 08:40] LABS: VBG HCO3 25 mEq/L (21-27); VBG PCO2 40 mmHg (41-51); VBG PO2 175 mmHg (25-50)
[2022-04-14 08:44] LABS: BUN/Creatinine Ratio 17 (6-26); Blood Urea Nitrogen 17 mg/dL (6-20); Calcium 8.1 mg/dL (8.6-10.3); Carbon Dioxide 24 mEq/L (23-29); Chloride 106 mEq/L (98-107); Glucose 219 mg/dL (70-105); Osmolality,Calculated 294 (280-300); Potassium 4.4 mEq/L (3.5-5.1); Sodium 138 mEq/L (136-145); eGFR For African Americans > 60 (> 60); eGFR For Non-African Americans > 60 (> 60)
[2022-04-14] MEDS: 0.9 % Sodium Chloride 1,000 ML IVC SCH ×2 (08:59→09:00)
[2022-04-14] MEDS ORDERED: Insulin LISPRO 300 UNITS/3 ML VIAL SUBQ SCH ×2 (08:59→21:00)
[2022-04-14] MEDS: Divalproex (24 HR) 500 MG TABLET PO SCH ×2 (09:09→19:59)
[2022-04-14] MEDS: *HR* Promethazine 25 MG/ML VIAL IM PRN (09:09)
[2022-04-14] MEDS ORDERED: 0.9 % Sodium Chloride w KCl 20 MEQ/1,000 ML MLS IVC SCH (09:30)
[2022-04-14] MEDS: Acetaminophen 325 MG TABLET PO PRN ×2 (09:30→22:17)
[2022-04-14] MEDS ORDERED: Insulin DETEMIR 100 UNIT/ML X5UNITS SUBQ ONE (11:00)
[2022-04-14 12:02] LABS: VBG HCO3 25 mEq/L (21-27); VBG PCO2 38 mmHg (41-51); VBG PH 7.42 pH Units (7.32-7.42); VBG PO2 69 mmHg (25-50)
[2022-04-14 12:14] LABS: BUN/Creatinine Ratio 17 (6-26); Blood Urea Nitrogen 18 mg/dL (6-20); Calcium 8.1 mg/dL (8.6-10.3); Carbon Dioxide 28 mEq/L (23-29); Chloride 108 mEq/L (98-107); Glucose 166 mg/dL (70-105); Osmolality,Calculated 294 (280-300); Potassium 3.8 mEq/L (3.5-5.1); Sodium 139 mEq/L (136-145); eGFR For African Americans > 60 (> 60); eGFR For Non-African Americans > 60 (> 60)
[2022-04-14 16:44] LABS: VBG HCO3 24 mEq/L (21-27); VBG PCO2 39 mmHg (41-51); VBG PO2 51 mmHg (25-50)
[2022-04-14 16:55] LABS: BUN/Creatinine Ratio 17 (6-26); Blood Urea Nitrogen 17 mg/dL (6-20); Calcium 7.9 mg/dL (8.6-10.3); Carbon Dioxide 26 mEq/L (23-29); Chloride 106 mEq/L (98-107); Glucose 165 mg/dL (70-105); Osmolality,Calculated 291 (280-300); Potassium 4.3 mEq/L (3.5-5.1); Sodium 138 mEq/L (136-145); eGFR For African Americans > 60 (> 60); eGFR For Non-African Americans > 60 (> 60)
[2022-04-14 21:12] LABS: BUN/Creatinine Ratio 17 (6-26); Blood Urea Nitrogen 18 mg/dL (6-20); Calcium 8.3 mg/dL (8.6-10.3); Carbon Dioxide 26 mEq/L (23-29); Chloride 105 mEq/L (98-107); Glucose 119 mg/dL (70-105); Osmolality,Calculated 287 (280-300); Sodium 137 mEq/L (136-145); eGFR For African Americans > 60 (> 60); eGFR For Non-African Americans > 60 (> 60)
[2022-04-15] MEDS: Insulin LISPRO 300 UNITS/3 ML VIAL SUBQ SCH ×3 (03:31→11:41)
[2022-04-15 07:55] LABS: Basophils % 0.3 %; Eosinophils # 0.1 K/mcL (0.0-0.6); Eosinophils % 2.2 %; Hematocrit 36.5 % (37.5-50.1); Hemoglobin 12.1 g/dL (12.9-16.9); Immature Granulocytes % 0.3 % (0-4); Lymphocytes # 1.2 K/mcL (0.6-4.6); Lymphocytes % 19.8 %; Mean Corpuscular HGB Conc 33.2 g/dL (31.6-35.5); Mean Corpuscular Hemoglobin 28.7 pg (28.0-33.3); Mean Corpuscular Volume 86.5 fL (83.0-100.0); Mean Platelet Volume 11.5 fL (9.4-12.4); Monocytes # 0.5 K/mcL (0.0-1.3); Neutrophils # 4.2 K/mcL (1.6-8.9); Platelet Count 200 K/mcL (140-400); Red Blood Count 4.22 M/mcL (4.19-5.50); Red Cell Distribution Width 12.6 % (11.5-14.5); Segmented Neutrophils % 69.4 %
[2022-04-15 08:39] LABS: BUN/Creatinine Ratio 13 (6-26); Blood Urea Nitrogen 14 mg/dL (6-20); Calcium 8.6 mg/dL (8.6-10.3); Carbon Dioxide 26 mEq/L (23-29); Chloride 105 mEq/L (98-107); Glucose 205 mg/dL (70-105); Osmolality,Calculated 294 (280-300); Potassium 4.6 mEq/L (3.5-5.1); Sodium 139 mEq/L (136-145); eGFR For African Americans > 60 (> 60); eGFR For Non-African Americans > 60 (> 60)
[2022-04-15 09:07] VITALS: RESP 17
[2022-04-15] MEDS: Divalproex (24 HR) 500 MG TABLET PO SCH (09:07)
[2022-04-15] MEDS ORDERED: Ketorolac 30 MG/ML VIAL IVP ONE (09:12)
[2022-04-15 10:15] LABS: Estimated Average Glucose 171 mg/dl; Hemoglobin A1C 7.6 %
[2022-04-15] MEDS ORDERED: Insulin LISPRO 300 UNITS/3 ML VIAL SUBQ SCH (12:00)
[2022-04-15 12:58] VITALS: BP 138/89; PULSE 60; TEMP 97.5; O2SAT 100
== END 2022-04-15 15:00 | disposition home or self-care (01) ==
LOC: EMEROOPIK 16:27 → INPPIK 16:27
PROVIDERS: ADMIT Internal Medicine; ATTEND Internal Medicine